=== PATIENT | female | born 1995 | race Caucasian/White ===

== ENCOUNTER 2017-01-23 16:33 | Inpatient (IN) | payer OTHER ==
[~2017-01-23] VITALS: Ht 152.4 cm; Wt 83.0 kg
[2017-01-23] MEDS ORDERED: SODIUM CHLORIDE 0.9% 1,000 ML IV ONE (17:58)
[2017-01-23 20:48] LABS: BASOPHILS % 0.8 % (0.0-2.0); EOSINOPHILS % 1.2 % (0.0-5.0); LYMPHOCYTES % 26.5 % (20.0-50.0); MEAN CORPUSCULAR HEMOGLOBIN 20.3 pg (28.0-32.0); MEAN CORPUSCULAR VOLUME 66.6 fL (81.0-99.0); MEAN PLATELET VOLUME 8.3 fl (7.4-10.4); MONOCYTES % 6.1 % (2.0-8.0); NEUTROPHILS % 65.4 % (40.0-76.0); PLATELET 306 x1000/uL (130-400); RED BLOOD CELL COUNT 3.08 mill/uL (4.2-5.4); RED CELL DISTRIBUTION WIDTH 19.6 % (11.6-14.6)
[2017-01-23 20:53] LABS: HEMATOCRIT. 20.5 % (36.0-48.0); HEMOGLOBIN. 6.3 g/dL (12.0-16.0)
[2017-01-23 20:54] LABS: CHLORIDE 106 mEq/L (98-107)
[2017-01-23 20:56] LABS: PARTIAL THROMBOPLASTIN TIME 24.1 sec (23.4-31.0); PROTHROMBIN TIME 10.3 sec (9.4-11.6)
[2017-01-23 20:59] LABS: CARBON DIOXIDE 25 mEq/L (21-32)
[2017-01-23 21:03] LABS: TROPONIN I < 0.02 ng/mL (0.00-0.04)
[2017-01-23 21:04] LABS: CREATINE KINASE MB FRACTION 1.1 ng/mL (0.5-3.6)
[2017-01-23 21:11] LABS: PLATELET ESTIMATE NORMAL
[2017-01-23 21:16] LABS: HCG SCREEN NEGATIVE
[2017-01-23 21:25] LABS: TOTAL IRON BINDING CAPACITY 485 ug/dL (250-450)
[2017-01-23] MEDS ORDERED: IPRATROPIUM/ALBUTEROL 0.5-3(2.5)MG/3ML NEB INH PRN (23:30)
[2017-01-23] MEDS ORDERED: MAGNESIUM/ALUMINUM HYDROXIDE/SIMETHICONE 30ML UDC PO PRN (23:30)
[2017-01-23] MEDS ORDERED: ONDANSETRON HCL 4MG/2ML VIAL IV PRN (23:30)
[2017-01-23] MEDS ORDERED: ACETAMINOPHEN 325MG TABLET PO PRN (23:30)
[2017-01-23] MEDS ORDERED: DOCUSATE SODIUM 100MG CAPSULE PO PRN (23:30)
[2017-01-24] VITALS (26 sets, daily range): BP systolic 99–121; BP diastolic 41–69
[2017-01-24 01:06] LABS: CHLORIDE 109 mEq/L (98-107)
[2017-01-24 01:12] LABS: CARBON DIOXIDE 25 mEq/L (21-32); TOTAL IRON BINDING CAPACITY 411 ug/dL (250-450)
[2017-01-24 07:25] LABS: BASOPHILS % 0.4 % (0.0-2.0); EOSINOPHILS % 1.2 % (0.0-5.0); HEMOGLOBIN. 7.4 g/dL (12.0-16.0); LYMPHOCYTES % 31.6 % (20.0-50.0); MEAN CORPUSCULAR HEMOGLOBIN 22.1 pg (28.0-32.0); MEAN CORPUSCULAR VOLUME 69.1 fL (81.0-99.0); MEAN PLATELET VOLUME 8.6 fl (7.4-10.4); NEUTROPHILS % 58.8 % (40.0-76.0); PLATELET 265 x1000/uL (130-400); RED BLOOD CELL COUNT 3.34 mill/uL (4.2-5.4); RED CELL DISTRIBUTION WIDTH 20.7 % (11.6-14.6)
[2017-01-24] MEDS: FERROUS SULFATE 325MG TABLET PO SCH ×3 (08:37→16:48)
[2017-01-24 09:10] LABS: CREATINE KINASE 46 IU/L (26-192); CREATINE KINASE MB FRACTION < 0.5 ng/mL (0.5-3.6); TROPONIN I < 0.02 ng/mL (0.00-0.04)
[2017-01-24 17:53] LABS: CREATINE KINASE 53 IU/L (26-192); CREATINE KINASE MB FRACTION 0.5 ng/mL (0.5-3.6); TROPONIN I < 0.02 ng/mL (0.00-0.04)
[2017-01-25] VITALS: BP 112/67
[2017-01-25 04:00] VITALS: BP 108/67
[2017-01-25 06:49] LABS: BASOPHILS % 0.3 % (0.0-2.0); EOSINOPHILS % 1.3 % (0.0-5.0); HEMATOCRIT. 31.1 % (36.0-48.0); LYMPHOCYTES % 21.1 % (20.0-50.0); MEAN CORPUSCULAR HEMOGLOBIN 23.2 pg (28.0-32.0); MEAN CORPUSCULAR VOLUME 71.9 fL (81.0-99.0); MEAN PLATELET VOLUME 8.3 fl (7.4-10.4); MONOCYTES % 7.1 % (2.0-8.0); NEUTROPHILS % 70.2 % (40.0-76.0); PLATELET 256 x1000/uL (130-400); RED BLOOD CELL COUNT 4.32 mill/uL (4.2-5.4); RED CELL DISTRIBUTION WIDTH 21.3 % (11.6-14.6)
[2017-01-25 07:35] LABS: CARBON DIOXIDE 27 mEq/L (21-32); CHLORIDE 109 mEq/L (98-107)
[2017-01-25 08:00] VITALS: BP 100/55
[2017-01-25] MEDS: FERROUS SULFATE 325MG TABLET PO SCH ×2 (08:54→13:10)
[2017-01-25 12:16] VITALS: BP 109/63
[2017-01-25 13:30] VITALS: BP 109/63
== END 2017-01-25 14:40 | disposition home or self-care (01) | DRG 532 ==
LOC: ER 19:31 → 8WST 22:12 → EDBEDREQ 22:26 → ENRESERV 22:53
PROVIDERS: ADMIT Internal Medicine; ATTEND Internal Medicine
PROC: 30233N1 Transfusion of Nonautologous Red Blood Cells into Peripheral Vein, Percutaneous Approach (ICD-10-PCS; principal; 2017-01-24)
DX: N93.9 Abnormal uterine and vaginal bleeding, unspecified (principal); D50.9 Iron deficiency anemia, unspecified; F17.200 Nicotine dependence, unspecified, uncomplicated; N85.4 Malposition of uterus; E78.00 Pure hypercholesterolemia, unspecified
CPT/HCPCS: 36415; 36430; 71010; 76830; 76856; 80048; 80053; 82550; 82553; 83540; 83550; 83735; 83880; 84443; 84484; 84703; 85025; 85044; 85610; 85730; 86850; 86900; 86920; 93005; 99291; J7030; J7040; P9016

== ENCOUNTER 2023-03-07 08:44 | Emergency (ER) | payer MEDICAID, OTHER ==
[~2023-03-07] VITALS: Ht 152.4 cm; Wt 81.0 kg
[2023-03-07 08:53] VITALS: BP 119/62; PULSE 74; RESP 20; TEMP 97.9; O2SAT 97
[2023-03-07] MEDS ORDERED: AMOX1TAB16 MT (09:29)
== END 2023-03-07 10:09 | disposition home or self-care (01) ==
LOC: ER 08:44
DX: H00.015 Hordeolum externum left lower eyelid (principal)
CPT/HCPCS: 99283